=== PATIENT | female | born 1945 | race African-American/Black ===

== ENCOUNTER 2016-10-26 15:12 | Emergency (ER) | payer MEDICARE ==
[~2016-10-26] VITALS: Ht 167.6 cm; Wt 90.7 kg
--- NOTE | 2016-10-26 16:02 | PHYS DOC ---
Past Medical History Past Medical History: Anxiety, CVA, Depression, GERD, High Cholesterol, Hypertension Additional Past Medical Histor: ALZHEIMER'S Past Surgical History: Hysterectomy, Knee Replacement Additional Past Surgical Histo: BX KNEE REPLACEMENT Alcohol Use: Occasionally Drug Use: None Adult General Chief Complaint Chief Complaint: BACK PAIN OR INJURY HPI HPI Patient is a 71 year old female who presents with back pain and flashes of light in L eye. Patient reports since this morning she has been having flashes of light from the lateral corner of her L eye; her vision is otherwise unchanged , no pain in the eye. This has resolved at this time. She also reports intermittent pain in her R middle back near her shoulder blade. No clear inciting or mitigating factors. This has also resolved at this time. No anterior chest pain, no SOB. No numbness or weakness. Patient is demented, friend present at bedside says she is at her baseline. Review of Systems Review of Systems Constitutional: Denies fever or chills Eyes: Flashes of light from lateral corner of L eye. Denies change in visual acuity or eye pain HENT: Denies nasal congestion or sore throat Respiratory: Denies cough or shortness of breath Cardiovascular: Denies chest pain GI: Denies abdominal pain, nausea, vomiting, bloody stools or diarrhea : Denies dysuria or hematuria Musculoskeletal: Mid R back pain Integument: Denies rash or skin lesions Neurologic: Denies headache, focal weakness or sensory changes Current Medications Current Medications Current Medications Medications (Trade) Dose Ordered Sig/Rachel Start Time Stop Time Status Last Admin Dose Admin Tetracaine HCl (Tetracaine) 1 drop 1X ONCE 10/26/16 16:15 10/26/16 16:16 DC Allergies Allergies Allergies Coded Allergies Type Severity Reaction Last Updated Verified No Known Drug Allergies 10/26/16 No Physical Exam Physical Exam Constitutional: Well developed, well nourished, no acute distress, non-toxic appearance HENT: Normocephalic, atraumatic, bilateral external ears normal Eyes: PERRL, EOMI, conjunctiva normal, no discharge; full visual christianson to confrontation; visual acuity OS 20/40 OD 20/40 OU 20/25; tonometry: pressure 17 OS, 18 OD; slit lamp and fundoscopic exam without gross abnormality: cornea and sclera clear and white; anterior chamber deep and quiet; iris round and reactive Neck: Normal range of motion, no stridor Cardiovascular: Bradycardoc, regular rhythm, no murmur Lungs & Thorax: Bilateral breath sounds clear to auscultation Abdomen: Bowel sounds normal, soft, non-distended, no TTP Skin: Warm, dry, no erythema, no rash Back: Mild tenderness at inferior border of R scapula (TTP over muscle); no deformity or skin lesion noted Extremities: No obvious deformity, no edema Neurologic: Alert and oriented X to person only, GCS 15, CN II-XII grossly intact, strength intact and symmetrical throughout, sensation to light touch intact throughout, no dystaxia on [id number] b/l Current Patient Data Vital Signs Vital Signs Date Time Temp Pulse Resp B/P Pulse Ox O2 Delivery O2 Flow Rate FiO2 10/26/16 18:27 80 135/85 10/26/16 17:55 99 Room Air 10/26/16 17:25 13 10/26/16 15:46 98.8 98.8 Lab Values Laboratory Tests Test 10/26/16 16:55 White Blood Count 5.3x10^3/uL (4.0-11.0) Red Blood Count 4.70x10^6/uL (3.50-5.40) Hemoglobin 12.7g/dL (12.0-15.5) Hematocrit 40.7% (36.0-47.0) Mean Corpuscular Volume 87fL (79-100) Mean Corpuscular Hemoglobin 27pg (25-35) Mean Corpuscular Hemoglobin Concent 31g/dL (31-37) Red Cell Distribution Width 15.2% (11.5-14.5) H Platelet Count 327x10^3/uL (140-400) Neutrophils (%) (Auto) 37% (31-73) Lymphocytes (%) (Auto) 54% (24-48) H Monocytes (%) (Auto) 7% (0-9) Eosinophils (%) (Auto) 2% (0-3) Basophils (%) (Auto) 1% (0-3) Neutrophils # (Auto) 2.0x10^3uL (1.8-7.7) Lymphocytes # (Auto) 2.8x10^3/uL (1.0-4.8) Monocytes # (Auto) 0.4x10^3/uL (0.0-1.1) Eosinophils # (Auto) 0.1x10^3/uL (0.0-0.7) Basophils # (Auto) 0.0x10^3/uL (0.0-0.2) Sodium Level 141mmol/L (136-145) Potassium Level 4.2mmol/L (3.5-5.1) Chloride Level 105mmol/L (98-107) Carbon Dioxide Level 30mmol/L (21-32) Anion Gap 6 (6-14) Blood Urea Nitrogen 15mg/dL (7-20) Creatinine 0.8mg/dL (0.6-1.0) Estimated GFR (Cockcroft-Gault) 86.1 Glucose Level 93mg/dL (70-99) Calcium Level 9.6mg/dL (8.5-10.1) Troponin I Quantitative < 0.017ng/mL (0.000-0.055) Laboratory Tests 10/26/16 16:55 Laboratory Tests 10/26/16 16:55 EKG EKG EKG (my read): sinus bradycardia, rate 48, normal axis, intervals wnl except RR , no acute ischemic changes Radiology/Procedures Radiology/Procedures CT head: IMPRESSION: No acute intracranial abnormality is detected. CXR: IMPRESSION: No acute cardiopulmonary abnormality is detected. Course & Med Decision Making Course & Med Decision Making Pertinent Labs and Imaging studies reviewed. (See chart for details) Patient is 71 year old female who presents with flashes of light in L eye and mid back pain (both now resolved). Concern for possibility of retinal detachment , however I feel this very unlikely given lack of symptoms at this time and benign exam. Back pain appear muscular. Will check EKG, CT head, CXR, labs to evaluate. Imaging results as above. Labs unremarkable. Labs unremarkable. I discussed eye complaint with Dr. Carrero (regional sales consultant pork cutlet maker); ok for patient to follow up with ophtho on Saturday. I also discussed patient's complaints with her PCP, Dr. Arreola: ok to send her home at this time and she can follow up as outpatient next week. Discussed with patient and friend, who is agreeable with plan. Will discharge with instructions for follow up and return precautions. Dragon Disclaimer Dragon Disclaimer This electronic medical record was generated, in whole or in part, using a voice recognition dictation system. Departure Departure Impression: Primary Impression: Back pain Additional Impression: Vision disturbance Disposition: 01 HOME, SELF-CARE Condition: STABLE Referrals: LANI ARREOLA MD (PCP) FRED CARRERO MD Patient Instructions: Back Pain, Adult, Eye - Photopsia Additional Instructions: Thank you for allowing us to provide care today in the Emergency Department. Schedule a follow up appointment with your primary care doctor. Follow-up with the pork cutlet maker (Dr. Carrero) on Saturday. Return promptly to the Emergency Department if you develop any new or concerning symptoms. Problem Qualifiers DEQUAN CARRILLO MD Oct 26, 2016 16:02
[2016-10-26] MEDS ORDERED: TETRACAINE 0.5% OPHTH SOLUTION 4ML BOTTLE. OU ONE (16:15)
--- NOTE | 2016-10-26 16:24 | RAD ---
CT of the head without contrast, 10/26/2016: History: Headache, visual disturbance Comparison is made to a study from 04/13/2011. There is mild cerebral atrophy. The ventricles are within normal limits in size. There is no shift of the midline structures. There is no evidence of acute intracranial hemorrhage or mass effect. IMPRESSION: No acute intracranial abnormality is detected. PQRS Compliance Statement: One or more of the following individualized dose reduction techniques were utilized for this examination: 1. Automated exposure control 2. Adjustment of the mA and/or kV according to patient size 3. Use of iterative reconstruction technique
--- NOTE | 2016-10-26 16:32 | RAD ---
Chest, 2 views, 10/26/2016: History: Back pain Comparison is made to a study from 01/24/2009. The depth of inspiration on the PA view is poor compared to the previous study. Compared to the previous study. The heart size and pulmonary vascularity are normal. There is mild tortuosity of the thoracic aorta. No pulmonary infiltrate is seen. There is no evidence of pleural fluid. Moderate spurring is present in the spine. IMPRESSION: No acute cardiopulmonary abnormality is detected.
[2016-10-26 17:05] LABS: BASO % 1 % (0-3); EOS % 2 % (0-3); HEMATOCRIT 40.7 % (36.0-47.0); HEMOGLOBIN 12.7 g/dL (12.0-15.5); LYMPH # 2.8 x10^3/uL (1.0-4.8); LYMPH % 54 % (24-48); MEAN CORPUSCULAR HEMOGLOBIN 27 pg (25-35); MEAN CORPUSCULAR HGB CONC 31 g/dL (31-37); MEAN CORPUSCULAR VOLUME 87 fL (79-100); MONO % 7 % (0-9); NEUT % 37 % (31-73); PLATELET COUNT 327 x10^3/uL (140-400); RED CELL DISTRIBUTION WIDTH 15.2 % (11.5-14.5); WHITE BLOOD COUNT 5.3 x10^3/uL (4.0-11.0)
[2016-10-26 17:26] LABS: CALCIUM 9.6 mg/dL (8.5-10.1); CREATININE 0.8 mg/dL (0.6-1.0); GFR 86.1; POTASSIUM 4.2 mmol/L (3.5-5.1)
[2016-10-26 18:27] VITALS: BP 135/85
--- NOTE | 2016-10-27 10:27 | EKG ---
[facility] [address] [place] [id number] Test Date: 2016-10-26 Test Time: 16:32:13 Pat Name: AN ZAPATA Department: Room: Gender: F Bindery Machine Operator: : [id number] Requested By: DEQUAN CARRILLO Order Number: [id number] Reading MD: Casey Hussein Measurements Intervals [place] Rate: 48 P: 41 MD: 150 QRS: 34 QRSD: 88 T: 47 QT: 422 QTc: 380 Interpretive Statements SINUS BRADYCARDIA NONSPECIFIC ST-T WAVE CHANGES. RI6.01 Unconfirmed report No previous ECG available for comparison Electronically Signed On 10-29-2016 14:00:03 VACUUM REPAIRER by Casey Hussein
== END 2016-10-26 19:12 | disposition home or self-care (01) ==
LOC: ER 15:12
DX: M54.89 Other dorsalgia (principal); H57.8 Other specified disorders of eye and adnexa; Z86.73 Personal history of transient ischemic attack (TIA), and cerebral infarction without residual deficits; E78.00 Pure hypercholesterolemia, unspecified; I10 Essential (primary) hypertension; K21.9 Gastro-esophageal reflux disease without esophagitis
CPT/HCPCS: 36415; 70450; 71020; 80048; 84484; 85027; 93005; 99285-25

== ENCOUNTER → 2017-03-15 | Outpatient (CLI) | payer MEDICARE ==
--- NOTE | 2017-03-15 15:08 | KCIC ---
Clinical Indication: Postmenopausal screening Technique: Bone Densitometry was performed with dual photon absorption of the lumbar spine and proximal left femur. This is a baseline exam. Findings: Lumbar Spine: Bone density is 1.333 g/cm2 for L1-L4. T-Score is 2.6 and Z-score 4.0. Age-matched percentage is 149 %. Left Femur total: Bone density is 1.0-3 g/cm2. T-Score is 0.7 and Z-score 1.1. Age-matched percentage is 120%. Impression: 1. Normal bone mineral density in the lumbar spine. 2. Normal bone mineral density in the left hip. Electronically signed by: Braulio Ornelas MD (03/15/2017 3:05 PM) [id number]
== END | disposition home or self-care (01) ==
LOC: KCIC MAMMO 12:22
PROVIDERS: ATTEND Internal Medicine
DX: Z78.0 Asymptomatic menopausal state (principal)
CPT/HCPCS: 77080

== ENCOUNTER → 2017-09-19 | Outpatient (CLI) | payer MEDICARE | END | disposition home or self-care (01) | LOC: MAMMO 11:23 | DX: Z12.31 Encounter for screening mammogram for malignant neoplasm of breast (principal) | CPT/HCPCS: 77067 ==